=== PATIENT | male | born 1955 | race Caucasian/White ===

== ENCOUNTER 2017-09-28 07:15 | Day surgery (SDC) | payer OTHER ==
[~2017-09-28] VITALS: Ht 185.4 cm; Wt 102.3 kg
[~2017-09-28 07:15] MED LIST: ALLO300; ASPI325; ASPI81EC PO; ATOR20 PO; ATOR40TA; COLCHICINE0.6 MG; DIAZ5 PO; IBUP800; INDO50; LOSA25; MULVITMINF PO; OXYACE5T PO; SILD25T; [UNRECOGNIZED DRUG - REMARK]
== END 2017-09-28 09:24 | disposition home or self-care (01) ==
LOC: ORSCSDS 07:15
PROVIDERS: Internal Medicine Gastroenterology
PROC: 0DBK8ZX Excision of Ascending Colon, Via Natural or Artificial Opening Endoscopic, Diagnostic (ICD-10-PCS; principal; 2017-09-28 08:30)
DX: Z12.11 Encounter for screening for malignant neoplasm of colon (principal); D12.2 Benign neoplasm of ascending colon; K64.1 Second degree hemorrhoids; K57.30 Diverticulosis of large intestine without perforation or abscess without bleeding; I10 Essential (primary) hypertension; E78.5 Hyperlipidemia, unspecified; N40.0 Benign prostatic hyperplasia without lower urinary tract symptoms; I25.10 Atherosclerotic heart disease of native coronary artery without angina pectoris; Z87.891 Personal history of nicotine dependence; E66.9 Obesity, unspecified; Z68.30 Body mass index [BMI] 30.0-30.9, adult; Z79.82 Long term (current) use of aspirin; Z79.899 Other long term (current) drug therapy
CPT/HCPCS: 88305; J0330; J1980; J2405; J7120

== ENCOUNTER → 2020-09-12 | Outpatient (CLI) | payer OTHER ==
[~2020-09-12] MED LIST changes: -ALLO300; +ALLO300 PO; -ASPI325; +ASPI325 PO; -ATOR40TA; +ATOR40TA PO; -IBUP800; +IBUP800 PO; -LOSA25; +LOSA25 PO
[2020-09-12 18:38] LABS: Influenza A Negative (NEGATIVE); Influenza B Negative (NEGATIVE)
== END | disposition home or self-care (01) ==
LOC: PLD 12:30 → LAB SHORT 12:30
PROVIDERS: Family Medicine
DX: M79.10 Myalgia, unspecified site (principal); R06.02 Shortness of breath; R50.9 Fever, unspecified
CPT/HCPCS: 87804

== ENCOUNTER → 2020-09-13 | Outpatient (CLI) | payer OTHER ==
[2020-09-13 17:19] LABS: Source, Urine Clean Catch
[2020-09-13 18:25] LABS: Bacteria Not Seen /hpf; Squamous Epithelial Cells Few /hpf (Few); White Blood Cells, Urine 0-2 /hpf (0-5)
== END | disposition home or self-care (01) ==
LOC: PLD 17:16 → LAB SHORT 17:16
PROVIDERS: Physician Assistant Medical
DX: R10.2 Pelvic and perineal pain (principal)
CPT/HCPCS: 81015

== ENCOUNTER 2020-09-20 10:28 | Emergency (ER) | payer OTHER ==
[~2020-09-20] VITALS: Ht 188 cm; Wt 79.4 kg
[2020-09-20 11:01] LABS: BASOPHILS ABSOLUTE AUTO 0.01 K/mm3 (0.00-0.23); BASOPHILS PERCENT AUTO 0 % (0-2); EOSINOPHILS PERCENT AUTO 0 % (0-6); Hematocrit 46.5 % (37.0-53.0); Hemoglobin 15.8 g/dL (13.5-17.5); IMMATURE GRAN ABSOLUTE AUTO 0.02 K/mm3 (0.00-0.10); IMMATURE GRAN PERCENT AUTO 0 % (0-1); LYMPHOCYTES ABSOLUTE AUTO 0.84 K/mm3 (0.84-5.20); LYMPHOCYTES PERCENT AUTO 15 % (21-46); MONOCYTES ABSOLUTE AUTO 0.38 K/mm3 (0.16-1.47); MONOCYTES PERCENT AUTO 7 % (4-13); Mean Corpuscular HGB 32.2 pg (26.0-34.0); Mean Corpuscular Volume 95 fL (80-100); Mean Platelet Volume 11.6 fL (9.1-12.4); NEUTROPHILS ABSOLUTE AUTO 4.45 K/mm3 (1.96-9.15); NEUTROPHILS PERCENT AUTO 78 % (41-73); Platelet Count 167 K/mm3 (150-400); RDW Coefficient Variation 12.2 % (11.7-14.2); RDW Standard Deviation 42.6 fL (35.1-46.3)
[2020-09-20 11:19] LABS: Alanine Aminotransfer (ALT/SGP 42 U/L (12-78); Albumin, Blood 3.4 g/dL (3.4-5.0); Albumin/Globulin Ratio 0.9 (0.8-1.8); Alk Phos 94 U/L (50-136); Anion Gap 8 mmol/L (6-16); Aspartate Aminotrans (AST/SGOT 31 U/L (12-37); Bilirubin, Total 0.5 mg/dL (0.1-1.0); Blood Urea Nitrogen 17 mg/dL (8-24); Bun/Creatinine Ratio 22.8 (12.0-20.0); CO2, Blood 24 mmol/L (21-32); Calcium, Blood 8.5 mg/dL (8.5-10.1); Chloride, Blood 107 mmol/L (98-108); Creatinine, Blood 0.75 mg/dL (0.60-1.20); Globulin, Blood 3.9 g/dL (2.2-4.0); Glomerular Filtration Rate >60 (60-); Glucose, Blood 168 mg/dL (70-99); Potassium, Blood 3.6 mmol/L (3.5-5.5); Sodium, Blood 139 mmol/L (136-145); Total Protein, Blood 7.3 g/dL (6.4-8.2)
[2020-09-20 13:12] LABS: Source, Urine Clean Catch
[2020-09-20 13:18] LABS: Appearance, Urine Clear (Clear); Bilirubin, Urine Neg (Neg); Blood, Urine Neg (Neg); Color, Urine Yellow (P-Yellow); Glucose Qualitative, Urine Neg (Neg); Ketones, Urine Neg (Neg); Leukocyte Esterase, Urine Neg (Neg); Nitrite, Urine Neg (Neg); Protein, Urine 1+ (Neg); Urobilinogen, Urine NORM (Normal)
[2020-09-20 13:55] LABS: Influenza A, PCR NEGATIVE (NEGATIVE); Influenza B, PCR NEGATIVE (NEGATIVE); Resp Syncytial Virus, PCR NEGATIVE (NEGATIVE)
[2020-09-20 14:07] LABS: SARS-Cov-2 (COVID-19) PCR, MMC POSITIVE (NEGATIVE)
== END 2020-09-20 14:15 | disposition home or self-care (01) ==
LOC: ER 10:28
PROVIDERS: Emergency Medicine; Internal Medicine
DX: U07.1 COVID-19 (principal); R06.02 Shortness of breath; R53.1 Weakness; R42 Dizziness and giddiness; R50.9 Fever, unspecified; I10 Essential (primary) hypertension; E78.5 Hyperlipidemia, unspecified; Z79.82 Long term (current) use of aspirin; Z79.899 Other long term (current) drug therapy
CPT/HCPCS: 0241U; 36415; 71045; 80053; 84484; 85025; 93005; 93010; 99284-25

== ENCOUNTER 2021-01-29 09:34 | Day surgery (SDC) | payer OTHER ==
[~2021-01-29] VITALS: Ht 182.9 cm; Wt 100.7 kg
[2021-01-29] MEDS ORDERED: ASPI325 PO (10:31)
--- NOTE | 2021-01-29 12:09 | NUR ---
01/29/21 1209 Sybil Bartlett SINGLE OMEGA 4.75 ANCHOR SYSTEM IMPLANTED. REF [id number] LOT [id number] EXP 07/03/22
== END 2021-01-29 13:33 | disposition home or self-care (01) ==
LOC: ORSCSDS 09:34
PROVIDERS: Orthopaedic Surgery
PROC: 0LS44ZZ Reposition Left Upper Arm Tendon, Percutaneous Endoscopic Approach (ICD-10-PCS; principal; 2021-01-29 11:00)
PROC: 0RNK4ZZ Release Left Shoulder Joint, Percutaneous Endoscopic Approach (ICD-10-PCS; principal; 2021-01-29 11:00)
PROC: 0LQ24ZZ Repair Left Shoulder Tendon, Percutaneous Endoscopic Approach (ICD-10-PCS; principal; 2021-01-29 11:00)
DX: M75.112 Incomplete rotator cuff tear or rupture of left shoulder, not specified as traumatic (principal); M75.42 Impingement syndrome of left shoulder; M19.012 Primary osteoarthritis, left shoulder; M75.32 Calcific tendinitis of left shoulder; I10 Essential (primary) hypertension; E78.5 Hyperlipidemia, unspecified; Z79.82 Long term (current) use of aspirin; Z79.899 Other long term (current) drug therapy
CPT/HCPCS: C1713; J0171; J0690; J1100; J2001; J2250; J2370; J2405; J2704; J3010; J7120

== ENCOUNTER 2023-01-25 07:14 | Day surgery (SDC) | payer MEDICARE, OTHER ==
[~2023-01-25] VITALS: Ht 185.4 cm; Wt 99.9 kg
[2023-01-25] MEDS ORDERED: Calcium Carbon500 MG (07:29)
[2023-01-25 09:02] VITALS: BP 127/84
== END 2023-01-25 09:12 | disposition home or self-care (01) ==
LOC: ORSCSDS 07:14
PROVIDERS: Internal Medicine Gastroenterology
PROC: 0DJD8ZZ Inspection of Lower Intestinal Tract, Via Natural or Artificial Opening Endoscopic (ICD-10-PCS; principal; 2023-01-25 08:30)
DX: Z12.11 Encounter for screening for malignant neoplasm of colon (principal); Z86.010 Personal history of colon polyps; K64.8 Other hemorrhoids; K57.30 Diverticulosis of large intestine without perforation or abscess without bleeding; I25.10 Atherosclerotic heart disease of native coronary artery without angina pectoris; E78.5 Hyperlipidemia, unspecified; I10 Essential (primary) hypertension; Z79.82 Long term (current) use of aspirin; E66.9 Obesity, unspecified; Z68.33 Body mass index [BMI] 33.0-33.9, adult; Z79.899 Other long term (current) drug therapy
CPT/HCPCS: J2704; J7120

== ENCOUNTER 2024-07-17 06:54 | Day surgery (SDC) | payer MEDICARE, OTHER ==
[~2024-07-17] VITALS: Ht 183 cm; Wt 98.4 kg
[2024-07-17] VITALS (15 sets, daily range): BP systolic 86–130; BP diastolic 43–90
[~2024-07-17 06:54] MED LIST changes: +ASPI81CH PO; +Acetaminophen 500 MG Tab PO SCH; +CALCIUM 600 +1 EA11 PO; +CELE200 PO; +Calcium Acetat667 MG; +Calcium Carbon500 MG; +CeFAZolin Sodium 2,000 MG in NS 100 ML IV SCH; +Chlorhexidine Mouth Care 15 ML UDC MT SCH; +IBUP400 PO; +L-Lysine500 M1; +Lactated Ringer's 1,000 ML IV SCH; +MELO7.5 PO; +OxyCODONE HCL 10 MG TABCR PO SCH; +Ropivacaine 0.5% HCl/Pf 123.125 MG,EPINEPHrine HCL 0.25 MG,Ketorolac Tromethamine 15 MG... INFIL SCH; +TAMS.4ER PO; +Tranexamic Acid 1,000 MG in NS 100 ML IV SCH; +Vitamin B-12100 MCG PO
--- NOTE | 2024-07-17 07:55 | NUR ---
History, Chart, Medications and Allergies reviewed before start of procedure. Patient up to Ambulate independently. Gait steady. Pre-Op teaching done. Pt verbalizes understanding. Patient confirms NPO status and agrees with scheduled surgery. Patient reports completing Chlorhexadine shower X6 prior to admission to hospital. Surgical site prepped with 2% Chlorhexidine cloth wipe. Lungs clear T/O to Auscultation. Patient States Post-Procedure ride home has been arranged.
[2024-07-17] MEDS ORDERED: Midazolam HCl 1MG / ML 2ML Vial ONE (09:32)
[2024-07-17] MEDS ORDERED: Midazolam HCl 1MG / ML 2ML Vial IV ONE (09:35)
[2024-07-17] MEDS ORDERED: propofoL 20 ML IV ONE (09:37)
[2024-07-17] MEDS ORDERED: propofoL 100 ML IV ONE (09:38)
[2024-07-17] MEDS ORDERED: Magnesium Hydroxide Conc 10 ML UDC PO PRN (09:50)
[2024-07-17] MEDS ORDERED: OxyCODONE HCL 5 MG TAB PO PRN ×2 (09:50→10:00)
[2024-07-17] MEDS ORDERED: Ondansetron HCl 2 MG / ML 2ML Vial IV PRN (09:50)
[2024-07-17] MEDS ORDERED: DiphenhydrAMINE HCL 25 MG Cap PO PRN (09:55)
[2024-07-17] MEDS ORDERED: Lactated Ringer's 1,000 ML IV SCH (09:55)
[2024-07-17] MEDS ORDERED: HYDROmorphone HCl/Pf 1MG SYR IV PRN (09:55)
[2024-07-17] MEDS ORDERED: FLU VACC TS2024-25(6MOS UP)/PF 45 MCG/0.5 ML SYRINGE IM SCH (09:55)
[2024-07-17] MEDS ORDERED: Metoclopramide HCl 5MG / ML 2ML Vial IV PRN (09:55)
[2024-07-17] MEDS ORDERED: Promethazine HCl 25 MG Tab PO PRN (10:00)
[2024-07-17] MEDS ORDERED: Bisacodyl 10 MG Supp PR PRN (10:00)
[2024-07-17] MEDS ORDERED: Ondansetron HCl 2 MG / ML 2ML Vial ONE (10:15)
[2024-07-17] MEDS ORDERED: Dexamethasone Sod Phos 10 MG/ML 1ML VIAL ONE (10:15)
[2024-07-17] MEDS ORDERED: Ketorolac Tromethamine 30mg Vial ONE (10:15)
[2024-07-17] MEDS ORDERED: Phenylephrine HCl 100 MCG/ML-NS 10MLSYR (1MG/10ML) ONE (10:41)
[2024-07-17] MEDS ORDERED: ePHEDrine Sulfate 50 MG/ML 1ML Injection ONE (10:49)
[2024-07-17] MEDS ORDERED: Ketorolac Tromethamine 15mg Vial IV SCH (12:00)
--- NOTE | 2024-07-17 12:05 | NUR ---
"Spiritual Care | Family Support Pt. is still in the PACU after his surgery. Spouse is in the waiting area.pt. and family are known to this maintenance manager from the community. Facilitated an update on the the Pts. precedure. Listened with interest and empathy. Spouse verbalized gratitude for the spiritual care support. Will remain available to the Pt. and family."
--- NOTE | 2024-07-17 12:25 | NUR ---
ARRIVAL TO SURGICAL UNIT VIA HOSPITAL BED. ALERT, ORIENTED, & PLEASANT. ASSESSMENT CHARTED. DENIES N/V; SNACKS & DRINKS GIVEN. DENIES PAIN. FAMILY AT SIDE.
--- NOTE | 2024-07-17 14:26 | NUR ---
Pt. is awake in bed and welcomes my visit. Pt. is known to this director cardiovascular from the community. Spouse is at bedside. Facilitated a life review and considered matters of balbir and belief. Pt. displays evidence of being engaged and aware. Prayed for the Pt. Pt. and spouse verbalize gratitude for the spiritual care visit.
[2024-07-17] MEDS ORDERED: Acetaminophen 500 MG Tab PO SCH (16:00)
[2024-07-17] MEDS ORDERED: CeFAZolin Sodium 2,000 MG in NS 100 ML IV SCH (18:00)
--- NOTE | 2024-07-17 19:35 | NUR ---
SHIFT SUMMARY PT HAS DONE WELL POST OP. PAIN WELL CONTROLLED. EATING, DRINKING, & AMBULATING STRONGLY. UNFORTUNATELY WASN'T ABLE TO GO HOME DUE TO NOT BEING ABLE TO DRIVE AT NIGHT & HIS INABILITY TO VOID IN TIME. (WAS I/O CATH'd IN PACU)
[2024-07-17] MEDS ORDERED: Docusate Sodium 100 MG Cap PO SCH (21:00)
[2024-07-17] MEDS ORDERED: Atorvastatin 40 MG Tab PO SCH (21:00)
[2024-07-17] MEDS ORDERED: Tamsulosin HCl 0.4 MG Cap PO SCH (21:00)
[2024-07-17] MEDS ORDERED: Losartan Potassium 25 MG Tab PO SCH (21:00)
[2024-07-17] MEDS ORDERED: Calcium/Vit D 600 mg-400 Unit Tab PO SCH (21:00)
[2024-07-18 04:48] VITALS: BP 138/76
--- NOTE | 2024-07-18 04:59 | NUR ---
SHIFT SUMMARY POD 1 L TKA PT SLEPT FOR MOST OF SHIFT. PAIN MANAGED PER EMAR. TOLERATING PO INTAKE, VOIDING. PT IS 1P SBA WITH FWW AND GB, PT WALKED IN THE HALLWAY X1. DRESSING TO L KNEE OF GENI AND AQUACEL IS C/D/I. PT HAD POLAR PAC IN PLACE DURING THE NIGHT. VSS. NO OTHER CONCERNS AT THIS TIME, CALL LIGHT WITHIN REACH
[2024-07-18 05:12] LABS: BASOPHILS ABSOLUTE AUTO 0.03 K/mm3 (0.00-0.23); BASOPHILS PERCENT AUTO 0 % (0-2); EOSINOPHILS PERCENT AUTO 0 % (0-6); Hematocrit 39.1 % (37.0-53.0); Hemoglobin 13.5 g/dL (13.5-17.5); IMMATURE GRAN ABSOLUTE AUTO 0.13 K/mm3 (0.00-0.10); IMMATURE GRAN PERCENT AUTO 1 % (0-1); LYMPHOCYTES PERCENT AUTO 6 % (21-46); MONOCYTES ABSOLUTE AUTO 1.52 K/mm3 (0.16-1.47); MONOCYTES PERCENT AUTO 7 % (4-13); Mean Corpuscular HGB 33.3 pg (26.0-34.0); Mean Corpuscular HGB Conc 34.5 g/dL (31.5-36.5); Mean Corpuscular Volume 97 fL (80-100); Mean Platelet Volume 11.3 fL (9.1-12.4); NEUTROPHILS ABSOLUTE AUTO 20.38 K/mm3 (1.96-9.15); NEUTROPHILS PERCENT AUTO 87 % (41-73); Platelet Count 200 K/mm3 (150-400); RDW Coefficient Variation 12.9 % (11.7-14.2); RDW Standard Deviation 45.9 fL (35.1-46.3); Red Blood Cell Count 4.05 M/mm3 (4.30-5.90); White Blood Cell Count 23.36 K/mm3 (4.00-11.30)
[2024-07-18 05:45] LABS: Bun/Creatinine Ratio 19.5 (12.0-20.0); Calcium, Blood 9.2 mg/dL (8.5-10.1); Creatinine, Blood 0.82 mg/dL (0.60-1.20); Potassium, Blood 4.2 mmol/L (3.5-5.5)
[2024-07-18 07:07] VITALS: BP 141/77
[2024-07-18] MEDS ORDERED: Allopurinol 300 MG Tab PO SCH (09:00)
[2024-07-18] MEDS ORDERED: Cyanocobalamin 100 MCG Tab PO SCH (09:00)
[2024-07-18] MEDS ORDERED: Aspirin 81 MG Chew PO SCH (09:00)
--- NOTE | 2024-07-18 09:58 | NUR ---
DISCHARGE SUMMARY PT CLEARED BY PHYSICAL THERAPY TO D/C HOME. PT FLOR PO INTAKE WELL. ADEQUATE PAIN CONTROL WITH PO MEDICATION. PT HAS VOIDED ON HIS OWN. PT AND FAMILY VERBALIZE UNDERSTANDING OF D/C INST. WILL F/U WITH [facility] IN 2 WEEKS. SENT HOME WITH EXTRA FELECIA TRACY. PT ESCORTED TO LOBBY VIA WC. TO GIVE RIDE HOME.
== END 2024-07-18 09:58 | disposition home or self-care (01) ==
LOC: ORSCMMR 06:54 → ORD 08:15 → SURS 12:20 → ORSCMMR 07-18 09:58
PROVIDERS: Orthopaedic Surgery
PROC: 8E0Y0CZ Robotic Assisted Procedure of Lower Extremity, Open Approach (ICD-10-PCS; principal; 2024-07-17 08:15)
PROC: 0SRD0JA Replacement of Left Knee Joint with Synthetic Substitute, Uncemented, Open Approach (ICD-10-PCS; principal; 2024-07-17 08:15)
DX: M17.12 Unilateral primary osteoarthritis, left knee (principal); I10 Essential (primary) hypertension; N40.0 Benign prostatic hyperplasia without lower urinary tract symptoms; Z79.899 Other long term (current) drug therapy; Z79.82 Long term (current) use of aspirin; Z96.651 Presence of right artificial knee joint
CPT/HCPCS: 36415; 73560-LT; 80048; 85025; 97110; 97162; A9270; C1713; C1776; J0171; J0690; J0735; J1100; J1885; J2250; J2371; J2405; J2704; J2795; J7120